=== PATIENT | male | born 1965 | race Caucasian/White ===

== ENCOUNTER → 2018-01-09 | Day surgery (SDC) | payer OTHER ==
[~2018-01-09] MED LIST: LIDOCAINE 1% PF 2 ML VIAL. ID; MIDAZOLAM HCL/PF 2 MG/2 ML VIAL. IV; PROPOFOL 20 ML IV; fentaNYL PF VIAL 100 MCG/2 ML VIAL IV
[2018-01-09] MEDS: IV RINGERS,LACTATED 1000ML 1,000 ML IV (11:46)
== END | disposition home or self-care (01) ==
LOC: SURG 11:18
DX: Z12.11 Encounter for screening for malignant neoplasm of colon (principal); K64.0 First degree hemorrhoids; Z80.0 Family history of malignant neoplasm of digestive organs; I10 Essential (primary) hypertension; E11.9 Type 2 diabetes mellitus without complications; E78.5 Hyperlipidemia, unspecified; Z98.890 Other specified postprocedural states; Z79.84 Long term (current) use of oral hypoglycemic drugs; Z79.899 Other long term (current) drug therapy
CPT/HCPCS: 45378; J2704